=== PATIENT | female | born 1950 | race Caucasian/White ===

== ENCOUNTER → 2017-01-08 | Day surgery (SDC) | payer OTHER ==
--- NOTE | 2017-01-09 14:55 | PATH ---
Cytology Non-Gynecological Report Patient Name: ALEXA EVANS [facility]. Rec. #: [id number] /Age/Gender: 1950 (Age: 66) / F Account: [id number] Location: RADIOLOGY Taken: 01/08/2017 Received: 01/08/2017 Reported: 01/09/2017 Physicians: Lisbeth Gonzalez M.D. Specimen(s) Received LEFT THYROID FNA Clinical History Left thyroid nodule, 3.29 x 2.29 x 2.96 cm. Final Diagnosis THYROID GLAND, LEFT LOBE, US GUIDED FINE NEEDLE ASPIRATION BIOPSY: SATISFACTORY FOR EVALUATION. NO MALIGNANT CELLS IDENTIFIED. 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 Comment: The smears and the cell block show clusters of bland appearing follicular epithelial cells arranged in mixed micro- and microfollicles and flat sheets. Some cells show Hurthle cell (oncocytic) change. Macrophages are present indicative of cystic change. Abundant colloid is present. Electronically Signed Miko Castillo M.D. Gross Description Received are four air dried smears, four smears in 95% alcohol, and 20 cc of bloody fluid in formalin. Four diff-quik stained slides, four Pap stained slides and one cell block are made.
== END | disposition home or self-care (01) ==
LOC: JRADIR 09:13
PROVIDERS: ATTEND Internal Medicine Endocrinology, Diabetes & Metabolism
PROC: 0G9G3ZX Drainage of Left Thyroid Gland Lobe, Percutaneous Approach, Diagnostic (ICD-10-PCS; principal; 2017-01-08)
PROC: BG44ZZZ Ultrasonography of Thyroid Gland (ICD-10-PCS; 2017-01-08)
DX: E04.1 Nontoxic single thyroid nodule (principal)
CPT/HCPCS: 76942; 88173; 88305-TC

== ENCOUNTER 2021-03-30 08:56 | Emergency (ER) | payer OTHER ==
[2021-03-30 09:04] VITALS: BP 147/79; PULSE 89; TEMP 98.5; BMI 27.8
[2021-03-30] MEDS ORDERED: LIDOCAINE 5% TOPICAL PATCH TP ONE (09:49)
[2021-03-30] MEDS ORDERED: LIDOCAINE 5% TOPICAL PATCH ONE (10:07)
[2021-03-30] MEDS ORDERED: ACETAMINOPHEN 500 MG TABLET (FP) PO ONE (10:16)
[2021-03-30] MEDS ORDERED: ACETAMINOPHEN 500 MG TABLET (FP) ONE (10:22)
[2021-03-30] MEDS ORDERED: LIDOCAINE PATCH REMOVAL MC SCH (22:00)
== END 2021-03-30 11:13 | disposition home or self-care (01) ==
LOC: JER 08:56
DX: M79.10 Myalgia, unspecified site (principal)
CPT/HCPCS: 73030-TC-RT-FY; 99284-25

== ENCOUNTER 2023-08-23 11:26 | Inpatient (IN) | payer OTHER ==
[2023-08-23 13:54] LABS: HEMATOCRIT 31.7 % (32.4-45.2); HEMOGLOBIN 10.6 GM/dL (10.7-15.3); MCH 28.9 pg (25.7-33.7); MCHC 33.3 g/dl (32.0-36.0); MEAN CELL VOLUME 86.9 fl (80-96); MEAN PLT VOLUME 8.4 fl (7.5-11.1); PLATELET COUNT 250 10^3/uL (134-434); RBC 3.65 M/mm3 (3.60-5.2); RDW 18.4 % (11.6-15.6); WHITE BLOOD COUNT 9.6 K/mm3 (4.0-10.0)
[2023-08-23 13:56] LABS: INR 1.26 (0.83-1.09); PROTHROMBIN TIME (PATIENT) 14.6 SEC (9.7-13.0)
[2023-08-23 13:58] LABS: ACTIVATED PTT 32.6 SECONDS (25.2-36.5)
[2023-08-23 14:03] LABS: CHLORIDE 105 mmol/L (98-107); POTASSIUM 3.7 mmol/L (3.5-5.1); SODIUM 133 mmol/L (136-145)
[2023-08-23 14:05] LABS: CALCIUM 8.8 mg/dL (8.5-10.1)
[2023-08-23 14:06] LABS: ALBUMIN 2.4 g/dl (3.4-5.0); ANION GAP 7 mmol/L (4-13); BLOOD UREA NITROGEN 25.8 mg/dL (7-18); CO2 21 mmol/L (21-32); GLUCOSE,RANDOM 176 mg/dL (74-106)
[2023-08-23 14:08] LABS: BILIRUBIN,DIRECT 12.4 mg/dL (0.0-0.2); SGPT/ALT 281 U/L (13-61)
[2023-08-23 14:09] LABS: SGOT/AST 301 U/L (15-37)
[2023-08-23 14:10] LABS: CREATININE 1.5 mg/dL (0.55-1.3)
[2023-08-23 14:11] LABS: ALK PHOS 826 U/L (45-117)
[2023-08-23 14:12] LABS: TOT PROT 7.6 g/dl (6.4-8.2)
[2023-08-23 14:19] LABS: BILIRUBIN,TOTAL 15.2 mg/dL (0.2-1)
[2023-08-23 14:33] LABS: HEPATITIS B SURFACE AG MATERN NON-REACTIVE (NONREACTIVE)
[2023-08-23] MEDS ORDERED: DOCUSATE SODIUM 100 MG CAPSULE (FP) PO PRN (23:54)
[2023-08-24 02:03] VITALS: BMI 23.1
[2023-08-24 04:28] VITALS: RESP 18
[2023-08-24] MEDS: INSULIN SLIDING SCALE (NOVOLOG) 1 VIAL SQ SCH ×4 (06:08→21:04)
[2023-08-24 09:12] LABS: BASO % 0.9 % (0-2.0); EOS % 0.6 % (0-4.5); HEMATOCRIT 31.9 % (32.4-45.2); HEMOGLOBIN 10.8 GM/dL (10.7-15.3); LYMPH % 52.2 % (8-40); MCH 29.4 pg (25.7-33.7); MCHC 33.7 g/dl (32.0-36.0); MEAN CELL VOLUME 87.1 fl (80-96); MEAN PLT VOLUME 8.5 fl (7.5-11.1); MONO % 4.3 % (3.8-10.2); PLATELET COUNT 286 10^3/uL (134-434); RBC 3.67 M/mm3 (3.60-5.2); RDW 18.7 % (11.6-15.6); WHITE BLOOD COUNT 11.6 K/mm3 (4.0-10.0)
[2023-08-24 09:28] LABS: POTASSIUM 3.6 mmol/L (3.5-5.1); SODIUM 133 mmol/L (136-145)
[2023-08-24] MEDS: HEPARIN NA (PORCINE) 5,000 UNITS/ML 1ML VIAL SQ SCH ×2 (09:28→21:09)
[2023-08-24 09:33] LABS: CALCIUM 9.6 mg/dL (8.5-10.1); MAGNESIUM 2.3 mg/dL (1.8-2.4)
[2023-08-24 09:35] LABS: BLOOD UREA NITROGEN 19.1 mg/dL (7-18); CO2 22 mmol/L (21-32); GLUCOSE,RANDOM 157 mg/dL (74-106)
[2023-08-24 09:36] LABS: ALBUMIN 2.4 g/dl (3.4-5.0)
[2023-08-24 09:38] LABS: CREATININE 1.5 mg/dL (0.55-1.3); PHOSPHOROUS 2.8 mg/dL (2.5-4.9); SGPT/ALT 308 U/L (13-61)
[2023-08-24 09:39] LABS: SGOT/AST 307 U/L (15-37)
[2023-08-24 09:40] LABS: ANISOCYTOSIS 0; MACROCYTOSIS 0; TOT PROT 7.8 g/dl (6.4-8.2)
[2023-08-24 09:45] LABS: ALK PHOS 898 U/L (45-117); ANION GAP 8 mmol/L (4-13); BILIRUBIN,TOTAL 15.5 mg/dL (0.2-1); CHLORIDE 103 mmol/L (98-107)
[2023-08-24] MEDS ORDERED: hydrOXYzine HCL 10 MG/5 ML LIQUID BULK BOTTLE PO PRN (12:08)
[2023-08-24] MEDS: CEFTRIAXONE 1 GM in DEXTROSE 5%-WATER - 50 ML IVPB SCH (13:18)
[2023-08-25] MEDS: INSULIN SLIDING SCALE (NOVOLOG) 1 VIAL SQ SCH ×3 (06:45→17:03)
[2023-08-25] MEDS ORDERED: SODIUM CHLORIDE 1,000 ML IV SCH (09:15)
[2023-08-25 10:03] LABS: INR 1.31 (0.83-1.09); PROTHROMBIN TIME (PATIENT) 15.2 SEC (9.7-13.0)
[2023-08-25 10:11] LABS: POTASSIUM 3.6 mmol/L (3.5-5.1)
[2023-08-25 10:15] LABS: BLOOD UREA NITROGEN 24.3 mg/dL (7-18); CALCIUM 8.8 mg/dL (8.5-10.1)
[2023-08-25 10:16] LABS: HEMATOCRIT 30.3 % (32.4-45.2); HEMOGLOBIN 10.2 GM/dL (10.7-15.3); MCH 29.1 pg (25.7-33.7); MCHC 33.6 g/dl (32.0-36.0); MEAN CELL VOLUME 86.4 fl (80-96); MEAN PLT VOLUME 8.7 fl (7.5-11.1); PLATELET COUNT 261 10^3/uL (134-434); RBC 3.51 M/mm3 (3.60-5.2); RDW 18.4 % (11.6-15.6); WHITE BLOOD COUNT 10.1 K/mm3 (4.0-10.0)
[2023-08-25 10:19] LABS: CREATININE 1.5 mg/dL (0.55-1.3)
[2023-08-25 10:21] LABS: ALBUMIN 2.2 g/dl (3.4-5.0)
[2023-08-25 10:24] LABS: SGOT/AST 274 U/L (15-37); SGPT/ALT 278 U/L (13-61)
[2023-08-25 10:25] LABS: BILIRUBIN,DIRECT 12.6 mg/dL (0.0-0.2)
[2023-08-25 10:26] LABS: TOT PROT 7.3 g/dl (6.4-8.2)
[2023-08-25 10:27] LABS: ALK PHOS 872 U/L (45-117)
[2023-08-25 10:36] LABS: BILIRUBIN,TOTAL 16.3 mg/dL (0.2-1)
[2023-08-25] MEDS: CEFTRIAXONE 1 GM in DEXTROSE 5%-WATER - 50 ML IVPB SCH (11:00)
[2023-08-25 13:12] LABS: ANISOCYTOSIS 1+; MACROCYTOSIS 0; TARGET CELLS 1+
[2023-08-25 16:07] VITALS: TEMP 98.8
[2023-08-25 19:42] VITALS: BP 156/86; PULSE 85
[2023-08-26 08:09] LABS: CARCINOEMBRYONIC ANTIGEN 2.9 ng/mL (0.0-4.7)
== END 2023-08-25 19:40 | disposition short-term general hospital (02) | DRG 435 ==
LOC: JER 11:26 → JERBED 20:36 → J6S 08-24 01:10
PROVIDERS: ADMIT Internal Medicine; ATTEND Internal Medicine
DX: C25.9 Malignant neoplasm of pancreas, unspecified (principal); K83.1 Obstruction of bile duct; C78.7 Secondary malignant neoplasm of liver and intrahepatic bile duct; C77.9 Secondary and unspecified malignant neoplasm of lymph node, unspecified; R17 Unspecified jaundice; E11.22 Type 2 diabetes mellitus with diabetic chronic kidney disease; I12.9 Hypertensive chronic kidney disease with stage 1 through stage 4 chronic kidney disease, or unspecified chronic kidney disease; N18.9 Chronic kidney disease, unspecified; E78.5 Hyperlipidemia, unspecified; K21.9 Gastro-esophageal reflux disease without esophagitis; E88.09 Other disorders of plasma-protein metabolism, not elsewhere classified
CPT/HCPCS: 36415; 74177-TC; 76705-TC; 80048; 80053; 80076; 82105; 82248; 82378; 82728; 82962; 83540; 83550; 83690; 83735; 84100; 85025; 85027; 85610; 85730; 86301; 86304; 86705; 86708; 87040; 87340; 87517; 87522; 87635; 93005; 93010; 99285-25; J1644

== ENCOUNTER 2024-09-01 12:04 | Inpatient (IN) | payer OTHER ==
[2024-09-01 13:04] LABS: VENOUS BASE EXCESS -17.2 mmol/L (-2-2); VENOUS O2 SATURATION 59.5 % (70-80); VENOUS PCO2 28.7 mmHg (38-52)
[2024-09-01 13:05] LABS: BASO % 0.2 % (0-2.0); HEMATOCRIT 14.4 % (32.4-45.2); LYMPH % 4.4 % (8-40); MCH 32.3 pg (25.7-33.7); MCHC 30.3 g/dl (32.0-36.0); MEAN CELL VOLUME 106.6 fl (80-96); MEAN PLT VOLUME 8.9 fl (7.5-11.1); MONO % 7.7 % (3.8-10.2); NEUT % 87.7 % (42.8-82.8); PLATELET COUNT 137 10^3/uL (134-434); RBC 1.35 M/mm3 (3.60-5.2); RDW 23.5 % (11.6-15.6); WHITE BLOOD COUNT 15.9 K/mm3 (4.0-10.0)
[2024-09-01 13:07] LABS: VENOUS PH 7.157 (7.310-7.410)
[2024-09-01 13:12] LABS: HEMOGLOBIN 4.4 GM/dL (10.7-15.3)
[2024-09-01 13:14] LABS: INR 1.58 (0.83-1.09); PROTHROMBIN TIME (PATIENT) 17.6 SEC (9.7-13.0)
[2024-09-01 13:17] LABS: ACTIVATED PTT 28.8 SECONDS (25.2-36.5)
[2024-09-01 13:29] LABS: POTASSIUM 5.8 mmol/L (3.5-5.1)
[2024-09-01 13:30] LABS: CALCIUM 7.9 mg/dL (8.5-10.1)
[2024-09-01 13:31] LABS: ALBUMIN 1.6 g/dl (3.4-5.0); BLOOD UREA NITROGEN 36.9 mg/dL (7-18)
[2024-09-01 13:34] LABS: CREATININE 2.1 mg/dL (0.55-1.3)
[2024-09-01 13:35] LABS: BILIRUBIN,TOTAL 0.6 mg/dL (0.2-1); TOT PROT 5.1 g/dl (6.4-8.2)
[2024-09-01 13:38] LABS: LACTIC ACID 13.9 mmol/L (0.4-2.0)
[2024-09-01] MEDS ORDERED: PIPERACILLIN/TAZOB 3.375 GM 3.375 GM/50 ML BAG IVPB ONE (13:47)
[2024-09-01 13:56] LABS: ANISOCYTOSIS 2+; MACROCYTOSIS 2+
[2024-09-01] MEDS ORDERED: PANTOPRAZOLE SODIUM 40 MG VIAL ONE (14:00)
[2024-09-01 14:07] LABS: CHLORIDE 103 mmol/L (98-107); SODIUM 129 mmol/L (136-145)
[2024-09-01 14:09] LABS: BLOOD UREA NITROGEN 36.2 mg/dL (7-18); CALCIUM 7.7 mg/dL (8.5-10.1); CO2 12 mmol/L (21-32); GLUCOSE,RANDOM 225 mg/dL (74-106)
[2024-09-01] MEDS: PIPERACILLIN/TAZOB 3.375 GM 3.375 GM in DEXTROSE 5%-WATER - 50 ML IVPB ONE (14:11)
[2024-09-01 14:12] LABS: CREATININE 2.2 mg/dL (0.55-1.3)
[2024-09-01 14:22] LABS: ANION GAP 14 mmol/L (4-13); POTASSIUM 6.2 mmol/L (3.5-5.1)
[2024-09-01] MEDS: PANTOPRAZOLE SODIUM 40 MG VIAL IVPUSH ONE (14:25)
[2024-09-01] MEDS ORDERED: CALCIUM GLUC IN NACL, ISO-OSM 1 GM/50 ML BAG IVPB ONE (15:10)
[2024-09-01] MEDS ORDERED: INSULIN REGULAR HUMAN 100 UNITS/ML *VIAL ONE (15:11)
[2024-09-01] MEDS: INSULIN REGULAR HUMAN 100 UNITS/ML *VIAL IVPUSH ONE (15:59)
[2024-09-01] MEDS: PANTOPRAZOLE SODIUM 80 MG in SODIUM CHLORIDE 100 ML IVPB SCH (18:50)
[2024-09-01] MEDS: CALCIUM GLUCONATE 10% - 1,000 MG/10 ML VIAL IVPB ONE (20:31)
[2024-09-01 20:45] LABS: BASO % 0.1 % (0-2.0); HEMATOCRIT 26.7 % (32.4-45.2); HEMOGLOBIN 8.6 GM/dL (10.7-15.3); LYMPH % 8.4 % (8-40); MCH 29.7 pg (25.7-33.7); MCHC 32.1 g/dl (32.0-36.0); MEAN CELL VOLUME 92.5 fl (80-96); MEAN PLT VOLUME 7.2 fl (7.5-11.1); MONO % 9.2 % (3.8-10.2); NEUT % 82.3 % (42.8-82.8); PLATELET COUNT 67 10^3/uL (134-434); RBC 2.88 M/mm3 (3.60-5.2); RDW 16.2 % (11.6-15.6); WHITE BLOOD COUNT 14.1 K/mm3 (4.0-10.0)
[2024-09-01 21:34] LABS: VENOUS BASE EXCESS -9.8 mmol/L (-2-2); VENOUS O2 SATURATION 28.5 % (70-80); VENOUS PCO2 33.8 mmHg (38-52); VENOUS PH 7.29 (7.310-7.410)
[2024-09-01 21:37] LABS: LACTIC ACID 5.3 mmol/L (0.4-2.0)
[2024-09-01] MEDS: MUPIROCIN 2% TOPICAL OINTMENT FOR DECOLONIZATION NS SCH (22:55)
[2024-09-02] MEDS: CHLORHEXIDINE GLUCONATE 4% CLEANSER FOR DECOLONIZATION TP SCH (00:01)
[2024-09-02] MEDS: VANCOMYCIN 1,000 MG in DEXTROSE 5%-WATER - 250 ML IVPB ONE (03:22)
[2024-09-02] MEDS: LACTATED RINGERS SOLUTION 1,000 ML/1,000 ML INFUS.BAG IV STA (03:50)
[2024-09-02 04:28] LABS: BASO % 0.1 % (0-2.0); LYMPH % 9.3 % (8-40); MCH 29.7 pg (25.7-33.7); MCHC 33.3 g/dl (32.0-36.0); MEAN CELL VOLUME 89.2 fl (80-96); MEAN PLT VOLUME 7.5 fl (7.5-11.1); MONO % 8.9 % (3.8-10.2); NEUT % 81.7 % (42.8-82.8); PLATELET COUNT 52 10^3/uL (134-434); RBC 2.24 M/mm3 (3.60-5.2); RDW 16.4 % (11.6-15.6); WHITE BLOOD COUNT 10.9 K/mm3 (4.0-10.0)
[2024-09-02 05:04] LABS: HEMOGLOBIN 6.7 GM/dL (10.7-15.3)
[2024-09-02] MEDS ORDERED: PHENYLEPHRINE HCL 10 MG/1 ML SINGLE DOSE VIAL ONE (05:09)
[2024-09-02] MEDS: PHENYLEPHRINE NS PREMIX 50,000 MCG/500 ML BAG CVP SCH (06:03)
[2024-09-02 08:07] LABS: URINE APPEARANCE CLEAR; URINE BILIRUBIN NEGATIVE (NEGATIVE); URINE COLOR YELLOW; URINE GLUCOSE (UA) 2+ (NEGATIVE); URINE KETONE NEGATIVE (NEGATIVE); URINE LEUK ESTERASE NEGATIVE (NEGATIVE); URINE NITRITE NEGATIVE (NEGATIVE); URINE PROTEIN NEGATIVE (NEGATIVE); URINE UROBILINOGEN 0.2 mg/dL (0.2-1.0)
[2024-09-02 10:32] LABS: BASO % 0.1 % (0-2.0); EOS % 0.2 % (0-4.5); HEMATOCRIT 32.9 % (32.4-45.2); HEMOGLOBIN 10.9 GM/dL (10.7-15.3); LYMPH % 5.2 % (8-40); MCH 29.7 pg (25.7-33.7); MCHC 33.2 g/dl (32.0-36.0); MEAN CELL VOLUME 89.6 fl (80-96); MEAN PLT VOLUME 7.1 fl (7.5-11.1); MONO % 6.6 % (3.8-10.2); NEUT % 87.9 % (42.8-82.8); PLATELET COUNT 86 10^3/uL (134-434); RBC 3.67 M/mm3 (3.60-5.2); RDW 16.5 % (11.6-15.6); WHITE BLOOD COUNT 17.2 K/mm3 (4.0-10.0)
[2024-09-02 10:39] LABS: INR 1.13 (0.83-1.09)
[2024-09-02 10:41] LABS: ACTIVATED PTT 28.4 SECONDS (25.2-36.5)
[2024-09-02 11:55] LABS: POTASSIUM 4.4 mmol/L (3.5-5.1)
[2024-09-02 11:57] LABS: ALBUMIN 1.8 g/dl (3.4-5.0); BLOOD UREA NITROGEN 50.5 mg/dL (7-18); MAGNESIUM 1.8 mg/dL (1.8-2.4)
[2024-09-02 12:00] LABS: CREATININE 1.7 mg/dL (0.55-1.3); PHOSPHOROUS 3.3 mg/dL (2.5-4.9)
[2024-09-02 12:02] LABS: TOT PROT 5.2 g/dl (6.4-8.2)
[2024-09-02 12:03] LABS: BILIRUBIN,TOTAL 1.4 mg/dL (0.2-1)
[2024-09-02 16:14] LABS: BASO % 0.1 % (0-2.0); EOS % 0.2 % (0-4.5); HEMATOCRIT 34.2 % (32.4-45.2); HEMOGLOBIN 11.5 GM/dL (10.7-15.3); LYMPH % 4.3 % (8-40); MCH 29.5 pg (25.7-33.7); MCHC 33.6 g/dl (32.0-36.0); MEAN CELL VOLUME 87.7 fl (80-96); MEAN PLT VOLUME 7.2 fl (7.5-11.1); MONO % 6.1 % (3.8-10.2); NEUT % 89.3 % (42.8-82.8); PLATELET COUNT 57 10^3/uL (134-434); RDW 15.6 % (11.6-15.6); WHITE BLOOD COUNT 13.2 K/mm3 (4.0-10.0)
[2024-09-02 16:15] LABS: HEMATOCRIT 33.6 % (32.4-45.2); HEMOGLOBIN 11.6 GM/dL (10.7-15.3); MCH 30.1 pg (25.7-33.7); MCHC 34.4 g/dl (32.0-36.0); MEAN CELL VOLUME 87.6 fl (80-96); MEAN PLT VOLUME 7.2 fl (7.5-11.1); PLATELET COUNT 54 10^3/uL (134-434); RBC 3.84 M/mm3 (3.60-5.2); RDW 15.4 % (11.6-15.6)
[2024-09-02] MEDS: INSULIN ASPART SLIDING SCALE (NOVOLOG) 1 VIAL SQ SCH (16:33)
[2024-09-02 21:47] LABS: EOS % 0.3 % (0-4.5); HEMATOCRIT 36.8 % (32.4-45.2); HEMOGLOBIN 12.1 GM/dL (10.7-15.3); LYMPH % 6.2 % (8-40); MCH 29.1 pg (25.7-33.7); MCHC 32.9 g/dl (32.0-36.0); MEAN CELL VOLUME 88.4 fl (80-96); MEAN PLT VOLUME 7.1 fl (7.5-11.1); MONO % 6.9 % (3.8-10.2); NEUT % 86.6 % (42.8-82.8); PLATELET COUNT 66 10^3/uL (134-434); RBC 4.17 M/mm3 (3.60-5.2); WHITE BLOOD COUNT 15.8 K/mm3 (4.0-10.0)
[2024-09-03 07:19] LABS: BASO % 0.1 % (0-2.0); EOS % 0.4 % (0-4.5); HEMOGLOBIN 11.2 GM/dL (10.7-15.3); LYMPH % 8.3 % (8-40); MCH 29.7 pg (25.7-33.7); MEAN CELL VOLUME 87.3 fl (80-96); MEAN PLT VOLUME 6.7 fl (7.5-11.1); MONO % 7.2 % (3.8-10.2); PLATELET COUNT 60 10^3/uL (134-434); RBC 3.77 M/mm3 (3.60-5.2); RDW 15.9 % (11.6-15.6); WHITE BLOOD COUNT 12.5 K/mm3 (4.0-10.0)
[2024-09-03 07:23] LABS: POTASSIUM 4.2 mmol/L (3.5-5.1)
[2024-09-03 07:31] LABS: ALBUMIN 1.7 g/dl (3.4-5.0); CALCIUM 8.2 mg/dL (8.5-10.1)
[2024-09-03 07:32] LABS: MAGNESIUM 1.7 mg/dL (1.8-2.4)
[2024-09-03 07:35] LABS: CREATININE 1.6 mg/dL (0.55-1.3); PHOSPHOROUS 3.4 mg/dL (2.5-4.9)
[2024-09-03 07:38] LABS: TOT PROT 4.9 g/dl (6.4-8.2)
[2024-09-03 09:47] LABS: BASO % 0.1 % (0-2.0); EOS % 0.3 % (0-4.5); HEMATOCRIT 32.6 % (32.4-45.2); HEMOGLOBIN 11.2 GM/dL (10.7-15.3); LYMPH % 7.5 % (8-40); MCH 30.3 pg (25.7-33.7); MCHC 34.4 g/dl (32.0-36.0); MEAN PLT VOLUME 7.1 fl (7.5-11.1); MONO % 6.7 % (3.8-10.2); NEUT % 85.4 % (42.8-82.8); PLATELET COUNT 43 10^3/uL (134-434); RBC 3.71 M/mm3 (3.60-5.2); RDW 16.4 % (11.6-15.6); WHITE BLOOD COUNT 12.5 K/mm3 (4.0-10.0)
[2024-09-04 07:38] LABS: POTASSIUM 4.1 mmol/L (3.5-5.1)
[2024-09-04 07:48] LABS: ALBUMIN 1.8 g/dl (3.4-5.0); BLOOD UREA NITROGEN 39.9 mg/dL (7-18); CALCIUM 7.9 mg/dL (8.5-10.1); MAGNESIUM 1.7 mg/dL (1.8-2.4)
[2024-09-04 07:51] LABS: CREATININE 1.5 mg/dL (0.55-1.3)
[2024-09-04 07:53] LABS: BILIRUBIN,TOTAL 1.4 mg/dL (0.2-1); TOT PROT 5.2 g/dl (6.4-8.2)
[2024-09-04 10:49] LABS: BASO % 0.1 % (0-2.0); EOS % 0.3 % (0-4.5); HEMATOCRIT 33.3 % (32.4-45.2); HEMOGLOBIN 11.2 GM/dL (10.7-15.3); LYMPH % 7.3 % (8-40); MCH 29.8 pg (25.7-33.7); MCHC 33.5 g/dl (32.0-36.0); MEAN CELL VOLUME 88.9 fl (80-96); MONO % 5.8 % (3.8-10.2); NEUT % 86.5 % (42.8-82.8); PLATELET COUNT 47 10^3/uL (134-434); RBC 3.74 M/mm3 (3.60-5.2); RDW 16.6 % (11.6-15.6); WHITE BLOOD COUNT 7.5 K/mm3 (4.0-10.0)
[2024-09-04] MEDS: PANTOPRAZOLE SODIUM 40 MG VIAL IVPUSH SCH (10:58)
[2024-09-04] MEDS: PEG 3350/NA SULF BICARB CL/KCL 4000 ML SOLN.RECON PO ONE (16:30)
[2024-09-05 08:04] LABS: POTASSIUM 3.2 mmol/L (3.5-5.1)
[2024-09-05 08:06] LABS: ALBUMIN 1.8 g/dl (3.4-5.0); BLOOD UREA NITROGEN 28.5 mg/dL (7-18); MAGNESIUM 1.6 mg/dL (1.8-2.4)
[2024-09-05 08:10] LABS: CREATININE 1.4 mg/dL (0.55-1.3); PHOSPHOROUS 3.6 mg/dL (2.5-4.9)
[2024-09-05 08:11] LABS: BILIRUBIN,TOTAL 1.1 mg/dL (0.2-1); TOT PROT 5.4 g/dl (6.4-8.2)
[2024-09-05] MEDS: KCL 10 MEQ IVPB 10 MEQ/100 ML INFUS.BAG IVPB SCH (09:08)
[2024-09-05] MEDS: MAGNESIUM 2GM/50ML STERILE WATER IVPB IVPB ONE (10:39)
[2024-09-05 12:47] LABS: HEMATOCRIT 32.9 % (32.4-45.2); HEMOGLOBIN 10.8 GM/dL (10.7-15.3); MCH 29.7 pg (25.7-33.7); MCHC 32.7 g/dl (32.0-36.0); MEAN PLT VOLUME 6.9 fl (7.5-11.1); PLATELET COUNT 48 10^3/uL (134-434); RBC 3.62 M/mm3 (3.60-5.2); RDW 16.2 % (11.6-15.6); WHITE BLOOD COUNT 6.8 K/mm3 (4.0-10.0)
[2024-09-05] MEDS: LIDOCAINE 4% PATCH TP ONE (13:18)
[2024-09-05 13:34] LABS: ANISOCYTOSIS 0; MACROCYTOSIS 0
[2024-09-05] MEDS: LIDOCAINE PATCH REMOVAL MC ONE (21:30)
[2024-09-06 07:53] LABS: HEMATOCRIT 31.5 % (32.4-45.2); HEMOGLOBIN 10.3 GM/dL (10.7-15.3); MCH 29.9 pg (25.7-33.7); MCHC 32.8 g/dl (32.0-36.0); MEAN CELL VOLUME 91.2 fl (80-96); MEAN PLT VOLUME 6.6 fl (7.5-11.1); PLATELET COUNT 44 10^3/uL (134-434); RBC 3.45 M/mm3 (3.60-5.2); WHITE BLOOD COUNT 6.5 K/mm3 (4.0-10.0)
[2024-09-06 07:56] LABS: POTASSIUM 3.5 mmol/L (3.5-5.1)
[2024-09-06 08:09] LABS: CALCIUM 8.2 mg/dL (8.5-10.1)
[2024-09-06 08:10] LABS: ALBUMIN 1.7 g/dl (3.4-5.0); BLOOD UREA NITROGEN 20.8 mg/dL (7-18); MAGNESIUM 2.1 mg/dL (1.8-2.4)
[2024-09-06 08:13] LABS: CREATININE 1.3 mg/dL (0.55-1.3); PHOSPHOROUS 2.8 mg/dL (2.5-4.9)
[2024-09-06 08:15] LABS: TOT PROT 5.4 g/dl (6.4-8.2)
[2024-09-06 11:55] VITALS: BMI 19.3
[2024-09-07] MEDS: PANTOPRAZOLE SODIUM 40 MG VIAL IVPUSH SCH (10:49)
[2024-09-07] MEDS: INSULIN ASPART SLIDING SCALE (NOVOLOG) 1 VIAL SQ SCH (12:08)
[2024-09-07] MEDS: POLYETHYLENE GLYCOL (HEALTHYLAX) 3350 17 GM PACKET PO SCH (21:22)
[2024-09-08] MEDS ORDERED: ACETAMINOPHEN 1000 MG/100 ML BAG IVPB ONE (02:19)
[2024-09-08] MEDS: ACETAMINOPHEN 1000 MG/100 ML BAG IVPB ONE (06:23)
[2024-09-08 10:04] LABS: BASO % 0.2 % (0-2.0); EOS % 0.2 % (0-4.5); HEMOGLOBIN 10.2 GM/dL (10.7-15.3); LYMPH % 12.2 % (8-40); MCH 30.3 pg (25.7-33.7); MCHC 32.9 g/dl (32.0-36.0); MEAN CELL VOLUME 92.2 fl (80-96); MEAN PLT VOLUME 8.2 fl (7.5-11.1); MONO % 9.7 % (3.8-10.2); NEUT % 77.7 % (42.8-82.8); PLATELET COUNT 48 10^3/uL (134-434); RBC 3.37 M/mm3 (3.60-5.2); RDW 17.1 % (11.6-15.6); WHITE BLOOD COUNT 7.7 K/mm3 (4.0-10.0)
[2024-09-08 10:12] LABS: CHLORIDE 102 mmol/L (98-107); SODIUM 135 mmol/L (136-145)
[2024-09-08 10:17] LABS: ALBUMIN 1.8 g/dl (3.4-5.0); BLOOD UREA NITROGEN 20.6 mg/dL (7-18); CO2 24 mmol/L (21-32)
[2024-09-08 10:18] LABS: GLUCOSE,RANDOM 180 mg/dL (74-106)
[2024-09-08 10:20] LABS: SGOT/AST 54 U/L (15-37); SGPT/ALT 54 U/L (13-61)
[2024-09-08 10:21] LABS: CREATININE 1.4 mg/dL (0.55-1.3)
[2024-09-08 10:22] LABS: BILIRUBIN,TOTAL 1.2 mg/dL (0.2-1)
[2024-09-08 10:23] LABS: ALK PHOS 350 U/L (45-117)
[2024-09-08 12:39] LABS: ANION GAP 8 mmol/L (4-13); POTASSIUM 2.9 mmol/L (3.5-5.1)
[2024-09-08] MEDS: ACETAMINOPHEN 1000 MG/100 ML BAG IVPB PRN (13:28)
[2024-09-08] MEDS: KCL 10 MEQ IVPB 10 MEQ/100 ML INFUS.BAG IVPB SCH (16:29)
[2024-09-08] MEDS: POTASSIUM CHLORIDE ORAL LIQUID 20 MEQ/15 ML PO ONE (16:30)
[2024-09-08] MEDS: LIDOCAINE 5% TOPICAL PATCH TP ONE (22:47)
[2024-09-09 08:59] LABS: BASO % 0.4 % (0-2.0); EOS % 1.1 % (0-4.5); HEMATOCRIT 30.5 % (32.4-45.2); LYMPH % 8.6 % (8-40); MCH 30.4 pg (25.7-33.7); MCHC 32.9 g/dl (32.0-36.0); MEAN CELL VOLUME 92.4 fl (80-96); MEAN PLT VOLUME 8.8 fl (7.5-11.1); MONO % 10.7 % (3.8-10.2); NEUT % 79.2 % (42.8-82.8); PLATELET COUNT 76 10^3/uL (134-434); RDW 19.1 % (11.6-15.6); WHITE BLOOD COUNT 5.2 K/mm3 (4.0-10.0)
[2024-09-09 09:14] LABS: INR 1.19 (0.83-1.09); PROTHROMBIN TIME (PATIENT) 13.4 SEC (9.7-13.0)
[2024-09-09 09:17] LABS: POTASSIUM 3.7 mmol/L (3.5-5.1)
[2024-09-09 09:26] LABS: ALBUMIN 1.6 g/dl (3.4-5.0); BLOOD UREA NITROGEN 19.1 mg/dL (7-18)
[2024-09-09 09:27] LABS: MAGNESIUM 1.6 mg/dL (1.8-2.4)
[2024-09-09 09:30] LABS: CREATININE 1.2 mg/dL (0.55-1.3); PHOSPHOROUS 2.8 mg/dL (2.5-4.9); TOT PROT 5.4 g/dl (6.4-8.2)
[2024-09-09] MEDS: PIPERACILLIN/TAZOB 3.375 GM 50 ML IVPB ONE (15:30)
[2024-09-09] MEDS: MAGNESIUM OXIDE 400 MG TABLET (FP) PO ONE (18:58)
[2024-09-09] MEDS: AMOX TR/POT CLAV 875MG/125MG TABLETS (FP) PO SCH ×2 (20:30→20:34)
[2024-09-09] MEDS: LIDOCAINE PATCH REMOVAL MC SCH (20:34)
[2024-09-10 10:28] LABS: BASO % 0.3 % (0-2.0); EOS % 0.1 % (0-4.5); HEMATOCRIT 30.8 % (32.4-45.2); HEMOGLOBIN 10.3 GM/dL (10.7-15.3); LYMPH % 4.8 % (8-40); MCH 30.8 pg (25.7-33.7); MCHC 33.6 g/dl (32.0-36.0); MEAN CELL VOLUME 91.9 fl (80-96); MEAN PLT VOLUME 7.2 fl (7.5-11.1); MONO % 10.9 % (3.8-10.2); NEUT % 83.9 % (42.8-82.8); PLATELET COUNT 50 10^3/uL (134-434); RBC 3.35 M/mm3 (3.60-5.2); RDW 19.2 % (11.6-15.6); WHITE BLOOD COUNT 5.5 K/mm3 (4.0-10.0)
[2024-09-10 10:39] LABS: INR 1.16 (0.83-1.09); PROTHROMBIN TIME (PATIENT) 13.3 SEC (9.7-13.0)
[2024-09-10] MEDS: ACETAMINOPHEN 325 MG TABLET (FP) PO PRN (10:44)
[2024-09-10 11:02] LABS: POTASSIUM 3.6 mmol/L (3.5-5.1)
[2024-09-10 11:08] LABS: ALBUMIN 1.5 g/dl (3.4-5.0); BLOOD UREA NITROGEN 19.1 mg/dL (7-18); CALCIUM 8.3 mg/dL (8.5-10.1)
[2024-09-10 11:12] LABS: CREATININE 1.5 mg/dL (0.55-1.3)
[2024-09-10 11:13] LABS: TOT PROT 5.5 g/dl (6.4-8.2)
[2024-09-10 13:05] LABS: EPI CELLS 24 /uL (0-25.1); HYALINE CASTS 0 /uL (0-3.1); URINE APPEARANCE CLEAR; URINE BACTERIA 12 /uL (0-1359); URINE BILIRUBIN NEGATIVE (NEGATIVE); URINE COLOR YELLOW; URINE GLUCOSE (UA) NEGATIVE (NEGATIVE); URINE KETONE NEGATIVE (NEGATIVE); URINE LEUK ESTERASE NEGATIVE (NEGATIVE); URINE NITRITE NEGATIVE (NEGATIVE); URINE PROTEIN 1+ (NEGATIVE); URINE RBC 7 /uL (0-23.9); URINE UROBILINOGEN 0.2 mg/dL (0.2-1.0)
[2024-09-10 13:30] LABS: URINE WBC 117.8 /uL (0-25.8)
[2024-09-10] MEDS: DEXTROSE 5%-0.45% SALINE 1,000 ML IV SCH (15:01)
[2024-09-10] MEDS: PIPERACILLIN/TAZOB 2.25 GM 2.25 GM/50 ML BAG IVPB SCH (15:02)
[2024-09-10] MEDS: ACETAMINOPHEN 325 MG TABLET (FP) PO ONE (21:23)
[2024-09-10] MEDS: SENNOSIDES 8.6MG TABLET (FP) PO PRN (21:23)
[2024-09-11 09:33] LABS: BASO % 0.3 % (0-2.0); EOS % 0.7 % (0-4.5); HEMOGLOBIN 9.6 GM/dL (10.7-15.3); LYMPH % 10.8 % (8-40); MCH 30.5 pg (25.7-33.7); MCHC 33.2 g/dl (32.0-36.0); MEAN CELL VOLUME 91.9 fl (80-96); MEAN PLT VOLUME 6.8 fl (7.5-11.1); MONO % 10.7 % (3.8-10.2); NEUT % 77.5 % (42.8-82.8); PLATELET COUNT 42 10^3/uL (134-434); RBC 3.15 M/mm3 (3.60-5.2); RDW 18.1 % (11.6-15.6); WHITE BLOOD COUNT 4.7 K/mm3 (4.0-10.0)
[2024-09-11 09:56] LABS: POTASSIUM 3.2 mmol/L (3.5-5.1)
[2024-09-11 10:04] LABS: ALBUMIN 1.4 g/dl (3.4-5.0); BLOOD UREA NITROGEN 16.4 mg/dL (7-18); CALCIUM 7.6 mg/dL (8.5-10.1)
[2024-09-11 10:07] LABS: CREATININE 1.4 mg/dL (0.55-1.3)
[2024-09-11 10:08] LABS: BILIRUBIN,TOTAL 0.7 mg/dL (0.2-1); TOT PROT 5.2 g/dl (6.4-8.2)
[2024-09-12 10:50] LABS: BASO % 0.4 % (0-2.0); EOS % 0.7 % (0-4.5); HEMOGLOBIN 10.2 GM/dL (10.7-15.3); LYMPH % 11.1 % (8-40); MEAN CELL VOLUME 91.4 fl (80-96); MONO % 11.3 % (3.8-10.2); NEUT % 76.5 % (42.8-82.8); RBC 3.28 M/mm3 (3.60-5.2); RDW 18.9 % (11.6-15.6); WHITE BLOOD COUNT 3.6 K/mm3 (4.0-10.0)
[2024-09-12 10:56] LABS: PLATELET COUNT 34 10^3/uL (134-434)
[2024-09-12 10:58] LABS: CHLORIDE 100 mmol/L (98-107); SODIUM 135 mmol/L (136-145)
[2024-09-12 11:00] LABS: ALBUMIN 1.4 g/dl (3.4-5.0); BLOOD UREA NITROGEN 14.5 mg/dL (7-18); CALCIUM 7.7 mg/dL (8.5-10.1); CO2 27 mmol/L (21-32); GLUCOSE,RANDOM 148 mg/dL (74-106)
[2024-09-12 11:02] LABS: CREATININE 1.4 mg/dL (0.55-1.3); SGOT/AST 53 U/L (15-37); SGPT/ALT 46 U/L (13-61)
[2024-09-12 11:05] LABS: BILIRUBIN,TOTAL 0.7 mg/dL (0.2-1); TOT PROT 5.5 g/dl (6.4-8.2)
[2024-09-12 11:06] LABS: ALK PHOS 250 U/L (45-117)
[2024-09-12 11:11] LABS: ANION GAP 8 mmol/L (4-13); POTASSIUM 2.7 mmol/L (3.5-5.1)
[2024-09-12] MEDS: KCL 10 MEQ IVPB 10 MEQ/100 ML INFUS.BAG IVPB SCH (12:34)
[2024-09-12] MEDS: POTASSIUM CHLORIDE ORAL LIQUID 20 MEQ/15 ML PO ONE ×2 (16:37→19:51)
[2024-09-12] MEDS: PIPERACILLIN/TAZOB 3.375 GM 3.375 GM in DEXTROSE 5%-WATER - 50 ML IVPB ONE (17:56)
[2024-09-13 05:50] VITALS: RESP 18
[2024-09-13 08:02] LABS: BASO % 0.3 % (0-2.0); EOS % 0.3 % (0-4.5); HEMOGLOBIN 8.7 GM/dL (10.7-15.3); LYMPH % 12.2 % (8-40); MCH 30.6 pg (25.7-33.7); MCHC 33.7 g/dl (32.0-36.0); MEAN CELL VOLUME 90.9 fl (80-96); MEAN PLT VOLUME 7.5 fl (7.5-11.1); MONO % 10.2 % (3.8-10.2); RBC 2.86 M/mm3 (3.60-5.2); RDW 18.9 % (11.6-15.6)
[2024-09-13 08:43] LABS: POTASSIUM 3.1 mmol/L (3.5-5.1)
[2024-09-13 08:54] LABS: ALBUMIN 1.4 g/dl (3.4-5.0); CALCIUM 7.6 mg/dL (8.5-10.1)
[2024-09-13 08:55] LABS: BLOOD UREA NITROGEN 14.6 mg/dL (7-18); MAGNESIUM 1.3 mg/dL (1.8-2.4)
[2024-09-13 08:57] LABS: CREATININE 1.3 mg/dL (0.55-1.3)
[2024-09-13 08:59] LABS: BILIRUBIN,TOTAL 0.6 mg/dL (0.2-1); TOT PROT 5.1 g/dl (6.4-8.2)
[2024-09-13 09:02] LABS: PLATELET COUNT 33 10^3/uL (134-434)
[2024-09-13] MEDS: POTASSIUM CHLORIDE ORAL LIQUID 20 MEQ/15 ML PO ONE (13:26)
[2024-09-13] MEDS: KCL 10 MEQ IVPB 10 MEQ/100 ML INFUS.BAG IVPB SCH (13:26)
[2024-09-13] MEDS: MAGNESIUM SULF 50% (8.12 MEQ/2 ML-1 GM VIAL) IVPB ONE (18:49)
[2024-09-14 07:20] VITALS: TEMP 97.4
[2024-09-14 09:54] LABS: BASO % 0.4 % (0-2.0); EOS % 1.2 % (0-4.5); HEMATOCRIT 31.3 % (32.4-45.2); HEMOGLOBIN 10.1 GM/dL (10.7-15.3); LYMPH % 25.1 % (8-40); MCH 30.3 pg (25.7-33.7); MCHC 32.4 g/dl (32.0-36.0); MEAN CELL VOLUME 93.6 fl (80-96); MEAN PLT VOLUME 7.8 fl (7.5-11.1); MONO % 11.3 % (3.8-10.2); PLATELET COUNT 39 10^3/uL (134-434); RBC 3.35 M/mm3 (3.60-5.2); WHITE BLOOD COUNT 5.8 K/mm3 (4.0-10.0)
[2024-09-14 10:31] LABS: POTASSIUM 3.9 mmol/L (3.5-5.1)
[2024-09-14 10:54] LABS: ALBUMIN 1.6 g/dl (3.4-5.0); CALCIUM 8.3 mg/dL (8.5-10.1)
[2024-09-14 10:57] LABS: CREATININE 1.3 mg/dL (0.55-1.3)
[2024-09-14 10:58] LABS: BILIRUBIN,TOTAL 0.7 mg/dL (0.2-1); TOT PROT 6.4 g/dl (6.4-8.2)
[2024-09-14 11:06] VITALS: BP 115/76; PULSE 80
== END 2024-09-14 13:32 | disposition home health service (06) | DRG 435 ==
LOC: JER 12:04 → JERBED 15:00 → JICU 17:21 → J6W 09-06 20:15
PROVIDERS: ADMIT Internal Medicine; ATTEND Internal Medicine
PROC: 30233N1 Transfusion of Nonautologous Red Blood Cells into Peripheral Vein, Percutaneous Approach (ICD-10-PCS; 2024-09-01)
PROC: 0FC98ZZ Extirpation of Matter from Common Bile Duct, Via Natural or Artificial Opening Endoscopic (ICD-10-PCS; 2024-09-09)
PROC: 0F798DZ Dilation of Common Bile Duct with Intraluminal Device, Via Natural or Artificial Opening Endoscopic (ICD-10-PCS; 2024-09-09)
PROC: 0F768DZ Dilation of Left Hepatic Duct with Intraluminal Device, Via Natural or Artificial Opening Endoscopic (ICD-10-PCS; 2024-09-12)
PROC: 30233R1 Transfusion of Nonautologous Platelets into Peripheral Vein, Percutaneous Approach (ICD-10-PCS; principal; 2024-09-12 12:30)
DX: C22.1 Intrahepatic bile duct carcinoma (principal); R57.1 Hypovolemic shock; K92.2 Gastrointestinal hemorrhage, unspecified; N17.9 Acute kidney failure, unspecified; R17 Unspecified jaundice; K83.09 Other cholangitis; K31.1 Adult hypertrophic pyloric stenosis; C79.9 Secondary malignant neoplasm of unspecified site; D69.6 Thrombocytopenia, unspecified; I12.9 Hypertensive chronic kidney disease with stage 1 through stage 4 chronic kidney disease, or unspecified chronic kidney disease; E11.22 Type 2 diabetes mellitus with diabetic chronic kidney disease; N18.9 Chronic kidney disease, unspecified; E78.5 Hyperlipidemia, unspecified; K59.00 Constipation, unspecified; D64.9 Anemia, unspecified; M17.11 Unilateral primary osteoarthritis, right knee; R50.9 Fever, unspecified; C22.0 Liver cell carcinoma
CPT/HCPCS: 0241U-QW; 36415; 36430; 70450-TC; 71045-TC-FY; 72125-TC; 72170-TC-FY; 73502-TC-LT-FY; 73560-TC-RT-FY; 74018-TC-FY; 74176-TC; 74177-TC; 74330-TC; 76000-TC-FY; 80048; 80053; 81003; 82010; 82150; 82272; 82728; 82803; 82962; 83036; 83540; 83550; 83605; 83690; 83735; 84100; 84436; 84443; 84484; 85025; 85027; 85032; 85384; 85610; 85730; 86850; 86900; 86901; 86922; 87040; 87086; 87186; 87481; 93005; 93010; 93306-TC; 97116-GP; 97161-GP; 99291; J0131; P9037; P9038; P9058; Q9967